=== PATIENT | female | born 1970 | race Caucasian/White ===

== ENCOUNTER 2017-12-02 03:23 | Observation (INO) | payer OTHER ==
[~2017-12-02] VITALS: Ht 175.3 cm; Wt 113.4 kg
[~2017-12-02 03:23] MED LIST: ATIVAN1 MG PO; CIPRO500 MG PO; COUMADIN,JANTO7.5 MG PO; COUMADIN,JANTOV10 MG PO; COUMADIN7.5 MG PO; LEXAPRO20 MG PO; LOSARTAN-HCTZ1 EACH PO; PERCOCET 5/31 TABLET PO; PROZAC20 MG PO; VITAMIN D5000 UNIT PO; XARELTO20 MG PO; ZANTAC15 MG/ML PO
[2017-12-02 04:03] LABS: BASOPHIL (%) 0.6 % (0-1); EOSINOPHIL (%) 0.4 % (0-5); HEMATOCRIT 36.5 % (36.0-46.0); HEMOGLOBIN 13.6 G/DL (11.9-15.5); IMMATURE GRANULOCYTE (%) 0.2 % (0.0-0.7); LYMPHOCYTE (%) 19.4 % (15-42); MCH 29.8 PG (29.0-34.0); MCHC 37.3 G/DL (30.0-36.0); MCV 79.9 FL (83-99); MONOCYTE (%) 9.4 % (3-12); MONOCYTE COUNT 0.5 K/uL (0-0.8); NEUTROPHIL COUNT 3.6 K/uL (1.8-6.4); PLATELET COUNT 158 K/uL (156-360); RBC DIS.WIDTH-CV 12.7 % (11.8-14.6); RBC DIS.WIDTH-SD 36.3 % (39-53); RED BLOOD COUNT 4.57 M/uL (3.80-5.20); WHITE BLOOD COUNT 5.1 K/uL (4.1-10.2)
[2017-12-02 04:15] LABS: CHLORIDE 102 mEq/L (99-109); POTASSIUM 2.8 mEq/L (3.7-5.4); SODIUM 136 mEq/L (136-147)
[2017-12-02 04:17] LABS: GLUCOSE 110 mg/dL (70-99)
[2017-12-02 04:37] LABS: ALBUMIN 4.1 g/dL (3.2-4.8)
[2017-12-02 04:40] LABS: TOTAL PROTEIN 7.6 g/dL (6.4-8.3)
[2017-12-02 04:42] LABS: TOTAL BILIRUBIN 0.6 mg/dL (0.0-1.0)
[2017-12-02 04:43] LABS: ALKALINE PHOSPHATASE 52 IU/L (3-129)
[2017-12-02 04:44] LABS: CREATININE 0.7 mg/dL (0.6-1.3); GFR ESTIMATE (CALCULATED) > 59 mL/min/
[2017-12-02 04:45] LABS: AST (GOT) 20 IU/L (2-34); DIRECT BILIRUBIN 0.3 mg/dL (0.0-0.3); UREA NITROGEN (BUN) 6 mg/dL (9-23)
[2017-12-02 04:46] LABS: ALT (GPT) 30 IU/L (3-49)
[2017-12-02 04:53] LABS: QUANTITATIVE HCG < 4.0 MIU/ML
[2017-12-02 06:00] LABS: ERTH.SED.RATE 52 MM/HR (0-20)
[2017-12-02 06:38] LABS: C-REACTIVE PROTEIN 104.7 MG/L (0-10)
[2017-12-02 08:35] LABS: APPEARANCE CLEAR ((CLEAR)); BILIRUBIN NEGATIVE; BLOOD NEGATIVE; COLOR YELLOW ((YELLOW)); GLUCOSE (STRIP) NEGATIVE; KETONES 5; LEUKOCYTES NEGATIVE; NITRITE POSITIVE; PROTEIN (STRIP) NEGATIVE; UROBILINOGEN 0.2 MG/DL (0.2-1.0)
[2017-12-02 08:42] LABS: BACTERIA RARE /HPF; EPITHELIAL CELLS RARE /HPF; MUCUS TRACE /LPF; RED BLOOD CELLS 0-5 /HPF (0-5); UCUL ADDED? YES
[2017-12-02 08:55] VITALS: BP 121/68
[2017-12-02 11:05] VITALS: BP 112/59
[2017-12-02 15:18] VITALS: BP 129/63
[2017-12-02 19:43] VITALS: BP 124/64
[2017-12-03 00:34] VITALS: BP 114/78
[2017-12-03 03:27] VITALS: BP 118/73
[2017-12-03 05:36] LABS: HEMATOCRIT 34.6 % (36.0-46.0); HEMOGLOBIN 12.1 G/DL (11.9-15.5); MCH 28.7 PG (29.0-34.0); PLATELET COUNT 149 K/uL (156-360); RBC DIS.WIDTH-CV 13.2 % (11.8-14.6); RBC DIS.WIDTH-SD 39.8 % (39-53); RED BLOOD COUNT 4.22 M/uL (3.80-5.20); WHITE BLOOD COUNT 2.9 K/uL (4.1-10.2)
[2017-12-03 05:59] LABS: CHLORIDE 105 MEQ/L (99-109); CREATININE 0.6 MG/DL (0.6-1.3); GFR ESTIMATE (CALCULATED) > 59 mL/min/; GLUCOSE 92 mg/dL (70-99); POTASSIUM 3.3 MEQ/L (3.7-5.4); SODIUM 140 MEQ/L (136-147); UREA NITROGEN (BUN) 6 mg/dL (9-23)
[2017-12-03 06:15] LABS: LYME DISEASE SEROLOGY SCREEN NEGATIVE (NEGATIVE)
[2017-12-03] MEDS ORDERED: DOXYCYCLINE HY100 MG PO (09:29)
== END 2017-12-03 10:41 | disposition home or self-care (01) ==
LOC: EME 03:23 → EDOF 07:46 → 4SOUTH 07:46 → EDOF 07:46 → ENRESERV 07:51 → 4SOUTH 08:33
PROVIDERS: Emergency Medicine; Physician Assistant
DX: A69.21 Meningitis due to Lyme disease (principal); A69.29 Other conditions associated with Lyme disease; R50.9 Fever, unspecified; R21 Rash and other nonspecific skin eruption; E87.6 Hypokalemia; D68.61 Antiphospholipid syndrome; Z79.01 Long term (current) use of anticoagulants; Z86.711 Personal history of pulmonary embolism; I10 Essential (primary) hypertension; F41.9 Anxiety disorder, unspecified; L94.8 Other specified localized connective tissue disorders; Z88.1 Allergy status to other antibiotic agents; Z88.2 Allergy status to sulfonamides
CPT/HCPCS: 71046; 80048; 80076; 81003; 83605; 84702; 85025; 85027; 85651; 86140; 86618; 86664; 86665; 87040; 87086; 93005; 99281; 99285; G0378; J0696; J1885; J2765; J3010; J3480; J7030; J7050